=== PATIENT | female | born 1945 | race Caucasian/White ===

== ENCOUNTER 2018-02-28 21:35 | Emergency (ER) | payer MEDICARE, BC ==
[~2018-02-28] VITALS: Ht 162.6 cm; Wt 66.7 kg
[~2018-02-28 21:35] MED LIST: ASPIRIN81 MG PO; CRESTOR5 MG PO; FOLIC ACID1 MG PO; LIBRAX CAPSULE1 EACH PO; PANTOPRAZOLE SO40 MG PO; PREMARIN1.25 MG PO; SYNTHROID125 MCG PO; VITAMIN D-32000 UNIT; WELLBUTRIN XL150 MG PO; ZOLOFT100 MG PO
--- NOTE | 2018-02-28 23:16 | Diagnostic Imaging Report ---
ANKLE 3+ VIEWS LEFT HISTORY: Pain COMPARISON: None FINDINGS: Bones: There is evidence of a step off cortical irregularity at the posterior pole of the talus Osseous alignment is within normal limits. Joints: The joint spaces are well-maintained. Soft tissues: Moderate soft tissue edema adjacent to the observation above suspicious for posterior talar fracture IMPRESSION: Findings are suspicious for minimally displaced posterior talar process fracture with associated edema. Signed by: Dr. Valente Ricks M.D. on 02/28/2018 11:13 PM
[2018-02-28 23:44] VITALS: BP 167/79
== END 2018-02-28 23:53 | disposition home or self-care (01) ==
LOC: ER 21:35
DX: M25.572 Pain in left ankle and joints of left foot (principal); S92.192A Other fracture of left talus, initial encounter for closed fracture; X58.XXXA Exposure to other specified factors, initial encounter
CPT/HCPCS: 99283